=== PATIENT | male | born 1980 | race Caucasian/White ===

== ENCOUNTER 2025-06-13 09:48 | Emergency (ER) | payer SELFPAY ==
[2025-06-13 09:49] VITALS: BP 93/56
--- NOTE | 2025-06-13 10:15 | ED.MUSCINJ ---
HPI-Injury
General
Chief Complaint: Musculo-Skeletal Complaint
Source: patient
Exam Limitations: none
Time Seen by Provider: 06/13/25 09:55
History of Present Illness-Injury
Is this injury a work related problem?: No
Is pt an associate of [facility]/[place]?: No
Initial Injury comments:
44-year-old male fingertip injury to his right index and long finger on a planer just prior to arrival tetanus is up-to-date he states
Past History
Past History
ED Past Medical History: None; Negative Asthma, HTN, Hypercholesterolemia or NIDDM
ED Past Surgical History: Orthopedic (plate/screws right ankle) and Other (shoulder reconstruction x2)
Social History
Tobacco: Smoker
Alcohol: Occasional
Drug: None
Personal:
Living: with family
Employment: Employed
Review of Systems
Review of Systems
All Other Systems: Not applicable
Musculoskeletal: Denies joint pain
Phy Exam
Physical Exam
Physical Exam:
Physical Exam
General: 44 male looks uncomfortable
Lungs: no acute respiratory distress.
Neuro: alert and oriented. no focal neurological deficits
Skin: no rash
Psychiatric: well kept. interactive and cooperative
Extremities: Fingertip amputation of the right index and long finger on the palmar surface not involving the nailbed bleeding controlled, able to flex and extend fingers
Injury Course
Orders/Labs/Results
Orders:
Orders
06/13/25 10:04
CeFAZolin 2 GRAM [Ancef] 2 grams in 10 ml IV NOW
06/13/25 10:05
HYDROmorphone [Dilaudid] 1 mg IV NOW STA
Hand, Right 3 View [CR Hand - Right Min 3 Views] Urgent
Comment:
Reason For Exam: woodworking injury
Procedures
Digital Block
Location of injection for digital block: base of digit
Indiction for Digital Block: pain relief
Type of anesthesia: 1% Lidocaine w/o EPI
Complications: none- good anesthesia
MDM/Problems Addressed
Differential Diagnosis Includes:
Fingertip amputation fracture laceration
MDM/Problems Addressed:
Fingertip injury
*Pulse Oximetry
SaO2: 99
Oxygen Mode of Delivery: Room air
Patient hypoxic: no
*Critical Care Note
Total Time (30-74mins, 75-104mins- exclusive of procedures): Not Applicable
Update Note
Update Note:
Update wounds were copiously irrigated after digital block no obvious fracture will place nonadherent dressing follow-up orthopedic hand surgery
ED Attending Note
-
Portions of this chart may have been created with voice recognition software.� Occasional wrong word or��sound alike� substitutions may have occurred due to the inherent limitations of voice recognition software.
Discharge Plan
Departure
Patient Disposition: Home (Routine Discharge)
Date of Disposition: 06/13/25
Time of Disposition: 11:27
Patient with high blood pressure during this ER visit?: No
Condition: Good
Discharge Problem:
Amputation of finger tip
Prescriptions:
New
ibuprofen 600 mg tablet
600 mg PO Q6H PRN (Reason: Pain) Qty: 14 0RF
cephalexin 500 mg capsule
500 mg PO Q8H 7 Days Qty: 21 0RF
oxycodone-acetaminophen [Percocet] 5-325 mg tablet
1 tab PO Q6HPRN PRN (Reason: pain) Qty: 10 0RF
No Action
hydrocodone-acetaminophen [Vicodin] 1 EACH tablet
1 ea PO Q4HPRN PRN (Reason: moderate pain) Qty: 20 0RF
cephalexin 500 MG capsule
500 mg PO QID Qty: 40 0RF
cyclobenzaprine 10 MG tablet
10 mg PO TIDPRN PRN (Reason: spasm) Qty: 15 0RF
amoxicillin-pot clavulanate 1 TABLET tablet
1 tab PO Q12 Qty: 19 0RF
cephalexin 500 mg capsule
500 mg PO BID Qty: 6 0RF
Referrals:
NONE,* [Family Provider, Internal Medicine]
Ray Waldrop MD [Active, Orthopedics] - Next open appointment
Activity Restrictions/Additional Instructions:
Call [facility] orthopedics to arrange follow-up
Tell the staff that you were seen in the ER
Interventions
Interventions:
*Risk Screen - Suicide Last Done: 06/13/25 09:49
*General Assessment Last Done: 06/13/25 09:49
*Neglect/Abuse Screening Last Done: 06/13/25 09:49
*ED- Fall Risk Assessment Last Done: 06/13/25 09:49
*ED COVID-19 Vaccine History Last Done: 06/13/25 09:49
*ED Influenza Vaccine History Last Done: 06/13/25 09:49
ED-Musculoskeletal Assessment Last Done: 06/13/25 10:19
Discharge Date and Time
Print Language: [place]
[2025-06-13] MEDS: ANCEF 10 IV (10:16)
[2025-06-13] MEDS: DILAUDID 1 MG IV (10:17)
[2025-06-13 10:19] VITALS: BP 103/71; BMI 24.4
== END 2025-06-13 11:52 | disposition home or self-care (01) ==
LOC: EMR 09:48
PROVIDERS: EMERGENCY PHYSICIAN Emergency Medicine
DX: S68.610A Complete traumatic transphalangeal amputation of right index finger, initial encounter (principal); S68.612A Complete traumatic transphalangeal amputation of right middle finger, initial encounter; W29.8XXA Contact with other powered hand tools and household machinery, initial encounter; F17.200 Nicotine dependence, unspecified, uncomplicated
CPT/HCPCS: 96374; 96375; 99284; 73130